=== PATIENT | female | born 1990 | race Caucasian/White ===

== ENCOUNTER 2020-10-26 22:43 | Emergency (ER) | payer OTHER ==
[~2020-10-26] VITALS: Ht 170.2 cm; Wt 81.4 kg
[2020-10-26] MEDS ORDERED: birth control tab PO (22:52)
[2020-10-26] MEDS ORDERED: MAGIC MOUTHWASH SUSPENSION BTL SS ONE (23:55)
[2020-10-27] MEDS ORDERED: MAGIC MOUTHWASH SUSPENSION BTL SS ONE (00:50)
[2020-10-27] MEDS ORDERED: valACYclovir HCL 500 MG TAB PO ONE (01:50)
[2020-10-27] MEDS ORDERED: VALA1TAB5 PO (01:56)
[2020-10-27] MEDS ORDERED: MAGICMW SSP (01:56)
[2020-10-27 02:10] VITALS: BP 120/71
== END 2020-10-27 02:11 | disposition home or self-care (01) ==
LOC: M ED 22:43
DX: B00.2 Herpesviral gingivostomatitis and pharyngotonsillitis (principal); Z88.8 Allergy status to other drugs, medicaments and biological substances